=== PATIENT | male | born 1950 | race Caucasian/White ===

== ENCOUNTER 2022-04-18 06:07 | Emergency (ER) | payer OTHER, MEDICARE, SELFPAY ==
[2022-04-18] VITALS (7 sets, daily range): BP systolic 149–220; BP diastolic 77–103; PULSE 91–111; RESP 12–20; TEMP 35.6; O2SAT 98–100
--- NOTE | ~2022-04-18 | CT_ITS ---
EXAMINATION: CT abdomen pelvis w con DATE: 04/18/2022 07:35 INDICATION: Right lower quadrant abdominal pain TECHNIQUE: Computed tomography (CT) of the abdomen and pelvis was performed with 100 mL Omnipaque-350 intravenous contrast. Automated exposure control and iterative reconstruction technique were employe d. The dose-length product was 880.63 mGy-cm. COMPARISON: None FINDINGS: Mild dependent atelectasis in the bilateral lower lobes. Heart size is normal. Atherosclerotic alvarado ry artery calcific location. No pericardial or pleural effusion. Small sliding-type hiatal hernia. Mi nimal focal adenomyomatosis at the tip of the fundus of the otherwise normal gallbladder. Liver, sple en, pancreas, bilateral adrenal glands and kidneys are normal. Normal appendix. No abnormal bowel wal l thickening or obstruction. Prostatomegaly. Bladder is unremarkable. Extensive vascular calcificatio ns as well as calcifications of the vas deferens which can be seen with diabetes. Small bilateral fat -containing inguinal hernias. There are bridging osteophytes at multiple levels in the spine, consist ent with diffuse idiopathic skeletal hyperostosis (DISH). Severe lumbosacral spondylosis with vacuum phenomena and degenerative endplate changes along the disc space. IMPRESSION: 1. Normal appendix. No acute intra-abdominal/pelvic process. 2. Small sliding-type hiatal hernia. 3. Prostatomegaly. Reviewed, dictated and finalized at location A. [employer]
[2022-04-18] MEDS: ONDANSETRON INJ 4 MG/2 ML VIAL IV PUSH (06:29)
[2022-04-18 06:37] LABS: Basophils Percent Auto 0.1 % (0.2-1.2); Eosinophils Absolute Auto 0.3 K/mm3 (0-0.3); Eosinophils Percent Auto 2.5 % (0-4.4); Hematocrit 49.6 % (42.0-52.0); Hemoglobin 16.5 g/dL (14.0-18.0); Immature Granulocyte Absolute 0.04 K/mm3 (0.00-0.031); Immature Granulocyte Percent A 0.4 % (0-0.5); Lymphocytes Absolute Auto 1.26 K/mm3 (0.9-3.2); Lymphocytes Percent Auto 11.6 % (18.3-44.2); Mean Corpuscular HGB Conc 33.3 g/dl (32-36); Mean Corpuscular Hemoglobin 30.2 pg (26-34); Mean Corpuscular Volume 90.7 fl (80-100); Mean Platelet Volume 10.1 fl (7.4-10.4); Monocytes Absolute Auto 0.4 K/mm3 (0.1-0.6); Monocytes Percent Auto 3.3 % (2.6-8.5); Neutrophils Percent Auto 82.1 % (45.5-73.1); Platelet Count Result 283 k/mm3 (150-375); Red Blood Count 5.47 M/mm3 (4.6-6.20); Red Cell Distribution Width 13.3 % (11.5-14.5); White Blood Count 10.9 K/mm3 (4.5-10.0)
[2022-04-18 06:47] LABS: Appearance Urine Clear (Clear); Bilirubin Urine Negative (Negative); Blood Urine Trace-lysed (Negative); Color Urine Yellow (Yellow); Glucose Urine UA 3+ mg/dL (Negative); Ketones Urine 2+ mg/dL (Negative); Leukocyte Esterase Ur Negative LEU/UL (Negative); Nitrate Urine Negative (Negative); Protein Urine 2+ mg/dL (Negative); Specific Grav Ur 1.015 (1.001-1.035); Urobilinogen Urine 0.2 mg/dL (<2.0); pH Urine 7.5 (5.0-9.0)
[2022-04-18 07:00] LABS: Alanine Aminotransferase 28 U/L (6-50); Albumin Level 5.1 g/dL (3.5-5.1); Alkaline Phosphatase 158 U/L (38-126); Anion Gap 15 mmol/L (8-16); Aspartate Amino Transferase 30 U/L (17-59); Bilirubin,Total 1.4 mg/dL (0.2-1.3); Blood Urea Nitrogen 17 mg/dL (9-20); Calcium 9.7 mg/dL (8.4-10.2); Carbon Dioxide 22 mmol/L (22-30); Chloride 100 mmol/L (98-107); Estimated CRCL calculation 63 ml/min; Estimated Glomerular Filt Rate > 60; Glucose 220 mg/dL (65-110); Lipase 65 U/L (23-300); Potassium 4.8 mmol/L (3.4-5.0); Sodium 137 mmol/L (137-145)
[2022-04-18] MEDS: SODIUM CHLORIDE 0.9% IV 1,000 ML 999 ML IV CONT (07:00)
[2022-04-18 07:18] LABS: RBC Urine 0-2 /hpf (0-2); Squamous Epithelial Cell Urine Rare /hpf (Few)
[2022-04-18 07:20] LABS: Add Urine Microscopic? YES
[2022-04-18] MEDS: MORPHINE SULFATE (*CRX) 4 MG/ML INJ IV PUSH (07:21)
--- NOTE | 2022-04-18 07:38 | ED.ABDPAIN ---
HPI - Abdominal Pain General Chief Complaint: Abdominal Pain Stated Complaint: RLQ pain, n/v Time Seen by Provider: 04/18/22 07:06 History of Present Illness HPI narrative: Pt presents with RLQ abdominal pain since 2300 last night getting progressively worse. Pt denies relieving factors. Pt denies fever or vomiting. states that this has happened in past and has resolved on own but is worse today. Related Data Allergies Allergy/AdvReac Type Severity Reaction Status Date / Time insulin glargine Allergy Mild Itching Verified 04/18/22 07:14 [From Lantus U-100 Insulin] Review of Systems Review of Systems: All systems reviewed & are unremarkable except as noted in HPI and below PMFSH Past Medical History Medical History (Updated 04/18/22 @ 08:03 by Luisa Martinez III, DO) Diabetes mellitus Peripheral neuropathy Retinopathy Social History Social History (System 04/01/19 @ 08:09 by Clare Luna) Smoking status: Unknown if ever smoked Substance use type: marijuana Exam Const: General: healthy appearing Nutritional Appearance: well nourished Orientation/consciousness: patient oriented x3 Limitations: no limitations HENMT: Mouth: Yes Normal oral and palatal mucosa present Eyes: Conjunctivae: conjunctivae normal Other: left cornea hazy (chronic) Neck: Neck: normal visual inspection and no lymphadenopathy Chest: Chest palpation & inspection: normal inspection of the chest Resp: Effort & Inspection: normal respiratory effort Auscultation: clear to auscultation bilaterally Cardio: Rate: regular rate Rhythm: regular rhythm GI: GI Palp: Yes Soft to palpation, Yes Tenderness to palpation present (GI) (RLQ at [facility]'s), No Guarding due to palpation present (GI) and No Rebound tenderness present Auscultation: normal bowel sounds Back/Spine/Pelvis: Back: no CVA tenderness Skin: General skin exam: normal color Rashes: no rashes Wounds: no wounds Neuro: General: patient oriented x3, moves all extremities, no meningeal signs and no focal motor deficits Cranial nerves: Yes Nystagmus not present Speech: normal speech Extrem: General: normal to inspection Psych: Mental Status: mental status grossly normal Affect: normal affect Attitude: cooperative Course Vital Signs Vital signs: Vital Signs Temperature 96.1 F L 04/18/22 06:13 Pulse Rate 111 H 04/18/22 06:13 Respiratory Rate 20 04/18/22 06:13 Pulse Oximetry 100 04/18/22 06:13 Oxygen Delivery Room Air 04/18/22 06:13 Temperature 96.1 F L 04/18/22 06:13 Pulse Rate 94 04/18/22 08:25 Respiratory Rate 18 04/18/22 08:25 Blood Pressure 149/82 H 04/18/22 08:25 Pulse Oximetry 98 04/18/22 08:25 Oxygen Delivery Room Air 04/18/22 06:13 MDM - Abdominal Pain Differential Diagnosis Differential diagnosis: Likely abdominal pain, acute appendicitis, constipation, diverticulitis, gastroenteritis and small bowel obstruction Medical Records Attestation: I reviewed the patient's medical records. Lab Data Attestation: I reviewed the patient's lab results. 04/18/22 06:28 04/18/22 06:28 Labs: Lab Results 04/18/22 04/18/22 04/18/22 Range/Units 06:28 06:28 06:40 WBC 10.9 H (4.5-10.0) K/mm3 RBC 5.47 (4.6-6.20) M/mm3 Hgb 16.5 (14.0-18.0) g/dL Hct 49.6 (42.0-52.0) % MCV 90.7 (80-100) fl MCH 30.2 (26-34) pg MCHC 33.3 (32-36) g/dl RDW 13.3 (11.5-14.5) % Plt Count 283 (150-375) k/mm3 MPV 10.1 (7.4-10.4) fl Immature Gran % (Auto) 0.4 (0-0.5) % Neut % (Auto) 82.1 H (45.5-73.1) % Lymph % (Auto) 11.6 L (18.3-44.2) % [place] % (Auto) 3.3 (2.6-8.5) % Eos % (Auto) 2.5 (0-4.4) % Baso % (Auto) 0.1 L (0.2-1.2) % Lymph # (Auto) 1.26 (0.9-3.2) K/mm3 [place] # (Auto) 0.4 (0.1-0.6) K/mm3 Eos # (Auto) 0.3 (0-0.3) K/mm3 Baso # (Auto) 0.0 (0.0-0.1) K/mm3 Abs Immat Gran (auto) 0.04 H (0.00-0.031) K
== END 2022-04-18 08:27 | disposition home or self-care (01) ==
PROVIDERS: Emergency Medicine; Emergency Provider Emergency Medicine
DX: R10.31 Right lower quadrant pain (principal); E11.42 Type 2 diabetes mellitus with diabetic polyneuropathy; E11.319 Type 2 diabetes mellitus with unspecified diabetic retinopathy without macular edema; K44.9 Diaphragmatic hernia without obstruction or gangrene; N40.0 Benign prostatic hyperplasia without lower urinary tract symptoms
CPT/HCPCS: 36415; 74177; 80053; 81001; 83690; 85025; 96361; 96374; 96375; 99284; J2270; J2405; J7030; Q9967